=== PATIENT | female | born 1985 | race Two or more races ===

== ENCOUNTER 2022-04-11 09:13 | Outpatient (CLI) | payer OTHER | END 2022-04-11 09:35 | disposition home or self-care (01) | LOC: TOM 09:13 | DX: N20.9 Urinary calculus, unspecified (principal) ==

== ENCOUNTER 2024-11-18 09:56 | Outpatient (CLI) | payer OTHER | END 2024-11-18 10:06 | disposition home or self-care (01) | LOC: SONOGRAMA 09:56 | PROVIDERS: ATTEND Obstetrics & Gynecology | DX: N92.5 Other specified irregular menstruation (principal); N93.0 Postcoital and contact bleeding ==